=== PATIENT | female | born 1995 | race Caucasian/White ===

== ENCOUNTER 2018-10-27 10:00 | Inpatient (IN) | payer OTHER ==
[~2018-10-27] VITALS: Ht 160 cm; Wt 61.3 kg
[2018-10-27 12:32] VITALS: BP 147/94; PULSE 91; TEMP 98.7
[2018-10-27 13:51] LABS: BASO # 0.1 (0.0-0.2); BASO % 0.4 % (0.0-2.0); EOS # 0.3 (0.0-0.7); EOS % 1.9 % (0-4.0); GRAN # 9.5 (1.4-6.5); GRAN % 69.4 % (42.2-75.2); LYMPH # 2.9 (1.2-3.4); MEAN CELL VOLUME 88 fl (80.0-100.0); MEAN CORPUSCULAR HGB CONC 32 g/dl (33.0-37.0); MEAN PLATELET VOLUME 10.2 fl (7.4-10.4); MONO # 0.9 (0.1-0.6); MONO % 6.6 % (1.7-9.3); PLATELET COUNT 588 K/mm3 (130-400); RED BLOOD COUNT 3.03 M/mm3 (4.10-5.30); REDCELL DISTRIBUTION WIDTH-CV 13.2 % (11.5-14.5)
[2018-10-27 13:54] LABS: HEMATOCRIT 26.7 % (37.0-47.0); HEMOGLOBIN 8.5 g/dl (12.5-16.0); MEAN CORPUSCULAR HEMOGLOBIN 28 pg (27.0-31.0)
[2018-10-27 14:01] LABS: ALANINE AMINOTRANSFERASE 9 U/L (9-52); ALBUMIN 2.4 gm/dL (3.5-5.0); ALKALINE PHOSPHATASE 226 U/L (50-136); ANION GAP 6 mmol/L (7-16); AST,SGOT 21 U/L (15-37); BILIRUBIN,TOTAL < 0.1 mg/dL (0.0-1.0); BLOOD UREA NITROGEN 31 mg/dL (7-17); CALCIUM 8.2 mg/dL (8.4-10.2); CARBON DIOXIDE 19 mmol/L (22-30); CHLORIDE 111 mmol/L (98-107); GLUCOSE 191 mg/dL (74-106); POTASSIUM 4.6 mmol/L (3.4-5.0); SODIUM 135 mmol/L (137-145); TOTAL PROTEIN 5.9 gm/dL (6.4-8.2)
[2018-10-27] MEDS ORDERED: LANTUS100 U/ML SQ (14:08)
[2018-10-27] MEDS ORDERED: NOVOLOG 100U100 U/M1 SQ (14:09)
--- NOTE | 2018-10-27 14:51 | NUR ---
Dr Camarillo notified of consult.
--- NOTE | 2018-10-27 14:55 | NUR ---
Patient alert and oriented, answers questions appropriately. See assessment. LUE with edema and redness noted around elbow, small amount of drainage noted. LUE with limited ROM. C/o pain to LUE with movement. No other c/o at this time.
[2018-10-27] MEDS ORDERED: HYGROTON 2525 MG/TAB PO (15:29)
[2018-10-27 17:10] LABS: RETIC # 0.03 M/mm3 (0.02-0.16); RETIC % 1.2 % (0.5-3.52)
[2018-10-27 17:11] VITALS: BP 158/97; PULSE 94; TEMP 98.4
[2018-10-27 17:29] LABS: IRON,SERUM 13 ug/dL (35-150)
[2018-10-27 17:39] LABS: TOTAL IRON BINDING CAPACITY 174 ug/dL (265-497)
[2018-10-27 18:05] LABS: FERRITIN 57 ng/mL (6-137)
--- NOTE | 2018-10-27 20:35 | NUR ---
Assessment completed. Patient is A&O x 4. VSS, HR noted to tachycardiac in the low 100's. Order for oral pain medication obtained and prn [place] started. Left elbow is edematous, red, warm and oozing clear liquid from a small blister. Area has been marked with a surgical skin pen. Denies any nausea. Voiding with no difficulities, UA sent down to lab. IVF infusing per orders. Accucheck this evening was 238, insulin given per orders. Up independently in room. is at bedside. Denies any concerns or needs, call light is within reach.
[2018-10-27 20:56] LABS: PH 7 (5-8); SQUAMOUS EPITHELIAL 0-2 /hpf; URINE APPEARANCE Clear; URINE BACTERIA None Seen /hpf; URINE BILIRUBIN Negative (NEGATIVE); URINE BLOOD Negative (NEGATIVE); URINE COLOR Straw; URINE GLUCOSE 3+ (NEGATIVE); URINE KETONE Negative (NEGATIVE); URINE LEUKOCYTE ESTERASE Trace (NEGATIVE); URINE NITRATE Negative (NEGATIVE); URINE PROTEIN(semi-quant) 2+ (NEGATIVE); URINE UROBILINOGEN Negative (NEGATIVE)
[2018-10-27 21:12] LABS: COLLECTION METHOD CLEAN CATCH
[2018-10-27 21:33] VITALS: BP 102/83; PULSE 113; TEMP 98.4
[2018-10-27 21:40] LABS: URINE PROTEIN:CREAT RATIO 20.77 (0.00-0.14)
[2018-10-28 00:46] VITALS: BP 144/90; PULSE 101; TEMP 98.6
--- NOTE | 2018-10-28 02:40 | NUR ---
While rounding on patient, patient was eating a snack stating she felt her blood sugar had dropped and requested it be checked at this time. Blood sugar checked and noted to be 31, hypoglycemic protocol initiated and STEPHAN Goode notified and orders to begin D5W @ 50 ml/hr.
--- NOTE | 2018-10-28 03:00 | NUR ---
Patient's blood sugar is 40 at this time, D5W initiated per orders at 50 ml/hr and will check blood sugars every 15 minutes at this time per protocol.
--- NOTE | 2018-10-28 03:20 | NUR ---
Blood sugar of 55 at this time. D5W remains infusing @ 50 ml/hr. Patient reports that she can tell her blood sugar is going up as she is feeling better. Will recheck again in approximately 15 minutes.
--- NOTE | 2018-10-28 03:41 | NUR ---
Blood sugar at this time is 79. D5W continues to infuse at 50 ml/hr. Patient reports she can tell blood sugar continues to increase, although, she still feels it is low. Assisted patient with changing of shirt due to sweating earlier. Verbalized an understanding that blood sugar will continue to be checked frequently, per protocol will check again in 1 hour.
--- NOTE | 2018-10-28 04:57 | NUR ---
Patient has rested intermittently through the night. Left elbow pain has been controlled with prn [place]. No increase in reddness or edema to left elbow from the beginning of this shift, scant amount of drainage from the elbow. Blood sugar was low when patient reported feeling symptomatic at 0240. Blood sugar checked q15 mins until it was above 70. Blood sugar is currently at 78 with D5W infusing at 50 ml/hr. STEPHAN Goode, notified of current blood sugar level and stated to leave infusing until readings were in the 100's consecutively. Patient denies any concerns or needs at this time. has been at the bedside through the night. Call light remains within reach.
[2018-10-28 05:12] VITALS: BP 130/89; PULSE 96; TEMP 98.4
--- NOTE | 2018-10-28 06:45 | NUR ---
Reported on to Carolynn Alexander RN. Pt reports c/o pain 5 out of 10 on numerical scale, throbbing feeling in left elbow. Elbow is red and warm, slight swelling in hand with no pitting. VSS. IV in place right wrist, no redness or warmth. AGATHA Marks agreed with PO pain med but was not given as pt went back to sleep.
[2018-10-28 06:49] LABS: BASO # 0.1 (0.0-0.2); BASO % 0.5 % (0.0-2.0); EOS # 0.2 (0.0-0.7); EOS % 1.9 % (0-4.0); GRAN # 7.6 (1.4-6.5); GRAN % 75.7 % (42.2-75.2); LYMPH # 1.6 (1.2-3.4); MEAN CELL VOLUME 87 fl (80.0-100.0); MEAN CORPUSCULAR HGB CONC 32 g/dl (33.0-37.0); MEAN PLATELET VOLUME 10.3 fl (7.4-10.4); MONO # 0.5 (0.1-0.6); MONO % 5.3 % (1.7-9.3); PLATELET COUNT 523 K/mm3 (130-400); RED BLOOD COUNT 2.74 M/mm3 (4.10-5.30); REDCELL DISTRIBUTION WIDTH-CV 13.1 % (11.5-14.5)
[2018-10-28 06:53] LABS: HEMATOCRIT 23.9 % (37.0-47.0); HEMOGLOBIN 7.7 g/dl (12.5-16.0); MEAN CORPUSCULAR HEMOGLOBIN 28 pg (27.0-31.0)
[2018-10-28 07:12] LABS: PHOSPHOROUS 5.6 mg/dL (2.5-4.5)
[2018-10-28 07:40] LABS: CALCIUM 8.1 mg/dL (8.4-10.2); CREATININE, serum 3.14 (0.52-1.25); POTASSIUM 5.1 mmol/L (3.4-5.0)
[2018-10-28 07:43] VITALS: BP 145/85; PULSE 99; TEMP 98.1
--- NOTE | 2018-10-28 08:30 | NUR ---
Pt awake and alert x4, pain level unchanged and c/o itching in area "where swelling was but has gone down". Administered 1 tab [place] 5 PO. Reiterated pt teaching regarding importance of not scratching.
--- NOTE | 2018-10-28 09:28 | NUR ---
Patient sitting up in bed getting ready to order breakfast. States her left elbow itches. Education received on the importance of not scratching site. Left hand noted to be swelled. Site to left elbow red, swollen, and warm. No open areas noted. Denies needs.
--- NOTE | 2018-10-28 11:31 | NUR ---
First visit from the software intern. No needs right now.
[2018-10-28 11:33] VITALS: BP 151/83; PULSE 97; TEMP 98.1
--- NOTE | 2018-10-28 11:34 | NUR ---
VSS. Patient reports c/o 2 out of 10 on numeric pain scale, recommended elevating elbow to help with swelling. Left pt resting comfortably in chair, call light in reach. No further needs requested. Reported off to AGATHA Pradhan.
--- NOTE | 2018-10-28 14:30 | NUR ---
DARLIN student met with the patient to discuss discharge planning. The patient lives in [place] with her . The patient reports independence with ADLs and has no DME. The patient reports she doesn't have a PCP but [place]. The patient reports she gets her medication at the pharmacy in [facility] and reports no trouble affording her medication. The patient does not have DPOA-HC in EMR and reports she is not interested in completing one. The patient plans to return home with her upon discharge. No additional needs at this time.
--- NOTE | 2018-10-28 16:35 | NUR ---
Patient resting in bed with eyes closed when this nurse entered the room. Opened eyes to name. Patient denies pain. LR currently running. Denies needs.
[2018-10-28 16:46] VITALS: BP 156/97; PULSE 99; TEMP 98.4
--- NOTE | 2018-10-28 18:54 | NUR ---
Patient sitting on the side of bed eating dinner with spouse at bedside. Denies needs. Will report off to night filler nurse.
[2018-10-28 20:00] VITALS: BP 146/92; PULSE 95; TEMP 98.4
[2018-10-28 20:03] LABS: COMPLEMENT-C3 157 mg/dL (79-152); COMPLEMENT-C4 44 mg/dL (18-55)
--- NOTE | 2018-10-28 22:00 | NUR ---
Assessment completed. Patient is A&O x 4. VSS, on room air. Denies any pain at this time. Left elbow is edematous, reddened and warm to touch. Area marked around elbow with surgical marker, noted that area is not as edematous as it was yesterday. Dry area on the elbow with no blister or puss draining today. Patient reports it feels much better and is able to move her elbow around more today. Tolerating diet with no c/o nausea. Voiding with no difficulities. IVF infusing with intermittent antibiotic per orders. Up independently in room. Blood sugar this evening was 260, insulin given per orders. is at bedside. Denies any concerns or needs at this time.
[2018-10-28 22:26] LABS: C-ANCA 19 U/mL (0-99)
[2018-10-29] VITALS (17 sets, daily range): BP systolic 132–152; BP diastolic 81–93; PULSE 75–117; TEMP 97.9–98.8
--- NOTE | 2018-10-29 02:45 | NUR ---
Patient is resting with eyes closed and even respirations, does not appear to be in any distress at this time.
[2018-10-29 06:15] LABS: CHOLESTEROL RISK RATIO 5.2
--- NOTE | 2018-10-29 06:39 | NUR ---
Patient has rested well through the night. Pain has been controlled with prn [place]. Left elbow has remained unchanged for last night, no drainage noted. IVF remain infusing. Denies any concerns or needs at this time, call light remains within reach.
--- NOTE | 2018-10-29 07:07 | NUR ---
Dr Camacho here to see patient, see orders.
[2018-10-29 07:51] LABS: HIV 1/2 Antibodies Non-Reactive; HIV-1p24 Antigen Non-Reactive
[2018-10-29 07:56] LABS: BASO % 0.4 % (0.0-2.0); EOS # 0.4 (0.0-0.7); EOS % 3.4 % (0-4.0); GRAN # 6.9 (1.4-6.5); GRAN % 62.2 % (42.2-75.2); LYMPH # 2.9 (1.2-3.4); LYMPH % 26.3 % (20.0-51.0); MEAN CELL VOLUME 88 fl (80.0-100.0); MEAN CORPUSCULAR HGB CONC 32 g/dl (33.0-37.0); MEAN PLATELET VOLUME 10.4 fl (7.4-10.4); MONO # 0.8 (0.1-0.6); PLATELET COUNT 605 K/mm3 (130-400); RED BLOOD COUNT 2.13 M/mm3 (4.10-5.30); REDCELL DISTRIBUTION WIDTH-CV 13.2 % (11.5-14.5)
[2018-10-29 07:59] LABS: HEMATOCRIT 18.8 % (37.0-47.0); MEAN CORPUSCULAR HEMOGLOBIN 28 pg (27.0-31.0)
[2018-10-29 08:09] LABS: ALANINE AMINOTRANSFERASE 9 U/L (9-52); ALBUMIN 2.1 gm/dL (3.5-5.0); ALKALINE PHOSPHATASE 209 U/L (50-136); ANION GAP 3 mmol/L (7-16); AST,SGOT 21 U/L (15-37); BILIRUBIN,TOTAL < 0.1 mg/dL (0.0-1.0); BLOOD UREA NITROGEN 38 mg/dL (7-17); CARBON DIOXIDE 20 mmol/L (22-30); CHLORIDE 112 mmol/L (98-107); CREATININE, serum 3.31 (0.52-1.25); GLUCOSE 167 mg/dL (74-106); POTASSIUM 5.4 mmol/L (3.4-5.0); SODIUM 135 mmol/L (137-145); TOTAL PROTEIN 5.3 gm/dL (6.4-8.2)
--- NOTE | 2018-10-29 09:33 | NUR ---
Pt resting comfortably, reports c/o pain 4 out 10 on numerical scale. When asked what she does at home when BG is 237, she advised she would take 2 units Novolog so that is what I administered, per Ana Rosa SNIDER. Left pt resting in bed, call light in reach.
--- NOTE | 2018-10-29 11:16 | NUR ---
VSS. Patient was asleep but easy to wake, reported the nausea was down to a 2 out of 10, pain controlled and unchanged. Left her resting in bed with no further needs, call light in reach. Reported off to AGATHA Oseguera.
--- NOTE | 2018-10-29 20:46 | NUR ---
PT'S BS 408, TRIED TO CALL ASHLEE WOODSON AND NO ANSWER. GAVE 10 UNITS OF NOVOLOG TO PT FOR HIGH BS. PT A/O X4, PT EDUCATED ON DRINKING SODA. PT AMBULATING IN ROOM AND GAIT STEADY. PT UP TO USE THE BATHROOM AND THEN BACK IN BED. SITTING UP AND WATCHING TV. PT ADVISES THAT PAIN IS AT 6/10 AND IT IS STABBING, ALSO, PT RECEIVED NORCO FOR PAIN. NO FURTHER NEEDS AT THIS TIME, CALL LIGHT WITHIN REACH.
--- NOTE | 2018-10-29 20:52 | NUR ---
PT'S LEFT ARM IN DILAN WRAP AND SLING, FINGERS ARE SWOLLEN, BUT COLOR STILL NORMAL. PT CAN MOVE FINGERS ON LEFT HAND AND NO PAIN TO LEFT HAND. CALL LIGHT WITHIN REACH.
--- NOTE | 2018-10-29 20:57 | NUR ---
CALLED ASHLEE WOODSON AND ADVISED OF PT'S BS AT 408. ALSO, GAVE NOVOLOG 10 UNITS, AND WILL RECHECK BLOOD GLUCOSE AT MIDNIGHT. NO NEW ORDERS RECEIVED, ONLY TO MONITOR BLOOD GLUCOSE.
--- NOTE | 2018-10-30 01:44 | NUR ---
PT RESTING/SLEEPING IN BED WITH HOB ELEVATED TO 45 DEGREE ANGLE. PT'S AT BEDSIDE. PT'S BS 325 AND SHE RECEIVED 6 UNITS OF NOVOLOG INSULIN. PT ALSO HAD SOME PAIN IN LEFT ARM RATED AT 6/10 GAVE NORCO FOR PAIN. PT HAS NO FURTHER NEEDS AT THIS TIME. CALL LIGHT WITHIN REACH.
[2018-10-30 04:59] VITALS: BP 146/92; PULSE 95; TEMP 98.3
[2018-10-30 06:47] LABS: BASO % 0.3 % (0.0-2.0); EOS # 0.3 (0.0-0.7); EOS % 2.2 % (0-4.0); GRAN # 7.9 (1.4-6.5); GRAN % 66.7 % (42.2-75.2); LYMPH # 2.8 (1.2-3.4); LYMPH % 23.6 % (20.0-51.0); MEAN CELL VOLUME 86 fl (80.0-100.0); MEAN CORPUSCULAR HGB CONC 32 g/dl (33.0-37.0); MEAN PLATELET VOLUME 9.9 fl (7.4-10.4); MONO # 0.8 (0.1-0.6); MONO % 6.4 % (1.7-9.3); PLATELET COUNT 579 K/mm3 (130-400); RED BLOOD COUNT 3.16 M/mm3 (4.10-5.30); REDCELL DISTRIBUTION WIDTH-CV 13.4 % (11.5-14.5)
[2018-10-30 06:51] LABS: HEMATOCRIT 27.2 % (37.0-47.0); HEMOGLOBIN 8.7 g/dl (12.5-16.0); MEAN CORPUSCULAR HEMOGLOBIN 28 pg (27.0-31.0)
[2018-10-30 06:54] LABS: CALCIUM 8.3 mg/dL (8.4-10.2); CREATININE, serum 3.63 (0.52-1.25); POTASSIUM 5.2 mmol/L (3.4-5.0)
--- NOTE | 2018-10-30 07:00 | NUR ---
awake resting in bed, bedside shift report received from AGATHA Carrillo
--- NOTE | 2018-10-30 08:00 | NUR ---
in bed watching TV, full assessment completed, see interventions for further info,
[2018-10-30 08:57] VITALS: BP 151/93; PULSE 96; TEMP 98.4
--- NOTE | 2018-10-30 09:30 | NUR ---
Dr Holt and care team in to see patient
--- NOTE | 2018-10-30 10:35 | NUR ---
c/o pain to left elbow 02/04, medicated with hydrocodone 5mg 2 tabs, states had a small amount emesis that was undigested food, given crackers and diet sprite with pain pills
--- NOTE | 2018-10-30 11:03 | NUR ---
IV fluids stopped and to INT
--- NOTE | 2018-10-30 12:21 | NUR ---
in bed and appears to be sleeping, eyes closed, resp quiet and easy
--- NOTE | 2018-10-30 12:35 | NUR ---
appears to be sleeping, in bed with eyes closed, resp quiet and easy
[2018-10-30 12:41] VITALS: BP 155/106; PULSE 104; TEMP 98.5
--- NOTE | 2018-10-30 13:02 | NUR ---
resting in bed, given sliding scale insulin
--- NOTE | 2018-10-30 14:00 | NUR ---
up and about in room independently, sleeps at intervals
[2018-10-30 16:00] VITALS: BP 138/85; PULSE 95; TEMP 98
--- NOTE | 2018-10-30 17:45 | NUR ---
awake now and up and about in room, ordering supper, denies needs
--- NOTE | 2018-10-30 17:58 | NUR ---
PT AWAKE IN CHAIR. PT RATES PAIN 0/10 WITH NO COMPLAINTS AT THIS TIME. PT UP AD KAN. CALL LIGHT WITHIN REACH. REPORT GIVEN TO GHADA SNIDER.
--- NOTE | 2018-10-30 18:52 | NUR ---
bedside shift report given to AGATHA Carrillo
[2018-10-30 19:30] VITALS: BP 141/99; PULSE 107; TEMP 97.9
[2018-10-30 23:33] VITALS: BP 145/95; PULSE 102; TEMP 98.3
--- NOTE | 2018-10-31 01:20 | NUR ---
PT AWAKE IN BED SITTING UP. PT HAS C/O OF LEFT ELBOW PAIN THAT IS STABING RATED AT A 6/10. NORCO GIVEN FOR PAIN. PT ADVISES ALSO, THAT SHE DOES NOT HAVE LOWER BACK PAIN AT THIS TIME. PT WAS GIVEN A WARM PACK AND PAIN MEDIATION EARLIER IN THE SHIFT FOR HER BACK. PT WAS EDUCATED ON PROPER ACCOUNTANT BOOKKEEPER, BECAUSE PT DOES NOT SIT STRAIGHT IN BE, LOWER BACK HAS CURVE. PT REQUESTED A SANDWICH BOX WHICH WAS GIVEN TO HER. PT HAS NO FURTHER NEEDS AND CALL LIGHT WITHIN REACH.
[2018-10-31 03:48] VITALS: BP 142/90; PULSE 03; TEMP 98.7
--- NOTE | 2018-10-31 04:12 | NUR ---
PT RESTING/SLEEPING IN BED WITH AND EASILY AWAKENS. PT DENIES PAIN OR DISCOMFORT AT THIS TIME, AND NO NEEDS. CALL LIGHT WITHIN REACH.
[2018-10-31 06:59] LABS: BASO % 0.4 % (0.0-2.0); EOS # 0.3 (0.0-0.7); GRAN # 5.4 (1.4-6.5); GRAN % 59.7 % (42.2-75.2); LYMPH # 2.7 (1.2-3.4); LYMPH % 29.1 % (20.0-51.0); MEAN CELL VOLUME 86 fl (80.0-100.0); MEAN CORPUSCULAR HGB CONC 33 g/dl (33.0-37.0); MEAN PLATELET VOLUME 10.1 fl (7.4-10.4); MONO # 0.6 (0.1-0.6); MONO % 6.8 % (1.7-9.3); PLATELET COUNT 512 K/mm3 (130-400); RED BLOOD COUNT 2.82 M/mm3 (4.10-5.30); REDCELL DISTRIBUTION WIDTH-CV 13.4 % (11.5-14.5)
[2018-10-31 07:03] LABS: ALANINE AMINOTRANSFERASE 9 U/L (9-52); ALBUMIN 2.1 gm/dL (3.5-5.0); ALKALINE PHOSPHATASE 186 U/L (50-136); ANION GAP 6 mmol/L (7-16); AST,SGOT 18 U/L (15-37); BILIRUBIN,TOTAL < 0.1 mg/dL (0.0-1.0); BLOOD UREA NITROGEN 46 mg/dL (7-17); CALCIUM 8.1 mg/dL (8.4-10.2); CARBON DIOXIDE 20 mmol/L (22-30); CHLORIDE 109 mmol/L (98-107); GLUCOSE 248 mg/dL (74-106); HEMATOCRIT 24.3 % (37.0-47.0); HEMOGLOBIN 7.9 g/dl (12.5-16.0); MEAN CORPUSCULAR HEMOGLOBIN 28 pg (27.0-31.0); POTASSIUM 4.8 mmol/L (3.4-5.0); SODIUM 136 mmol/L (137-145); TOTAL PROTEIN 5.2 gm/dL (6.4-8.2)
[2018-10-31 07:22] LABS: CREATININE, serum 3.97 (0.52-1.25)
[2018-10-31 07:58] VITALS: BP 159/106; PULSE 92; TEMP 97.7
--- NOTE | 2018-10-31 08:50 | NUR ---
Patient sitting up in recliner, alert and oriented x 3. Shift assessment complete. Raghu SANCHEZ in this AM to remove PAUL and redress left elbow. DILAN wrap is CDI. Edema noted to left arm. Patient independent in room. States pain 4/10 to left elbow. Medications given per orders. Denies further needs at this time.
--- NOTE | 2018-10-31 11:52 | NUR ---
DARLIN met with the patient to review discharge plan. The patient states she is doing good and still plans to return home with her upon discharge. No additional needs at this time.
[2018-10-31] MEDS ORDERED: ADALAT CC30 MG PO (12:18)
[2018-10-31] MEDS ORDERED: FERROUS SU325 MG/TAB PO (12:18)
[2018-10-31] MEDS ORDERED: HYGROTON 2525 MG/TAB PO (12:18)
--- NOTE | 2018-10-31 12:26 | NUR ---
Notified Geovanna SANCHEZ of blood sugar of 420, administered 10units of novolog.
[2018-10-31 12:55] VITALS: BP 170/108; PULSE 101; TEMP 97.4
[2018-10-31] MEDS ORDERED: CLEOCIN HCL300 MG PO (13:07)
--- NOTE | 2018-10-31 13:14 | NUR ---
Attempted to contact Effie SANCHEZ, regarding BP
[2018-10-31 15:38] VITALS: BP 160/96; PULSE 92; TEMP 98.2
--- NOTE | 2018-10-31 16:54 | NUR ---
Discharge instructions provided to patient. Educated patient on taking medications as prescribed and checking blood sugars. Educated on signs and symptoms of infection and when to call provider. Patient educated on dressing changes to left elbow. Reminded patient to keep follow up appointments. INT to right wrist discontinued, catheter tip intact. Patient tolerated procedure well. Denies pain or further needs at this time. Patient called pcp and scheduled appointment on 11/05/18. Patient getting dressed at this time. Spouse in room. Patient will call out to nurses station when she is ready to leave.
--- NOTE | 2018-10-31 17:10 | NUR ---
Patient ambulated out with surgical staff.
== END 2018-10-31 17:10 | disposition home or self-care (01) | DRG 500 ==
LOC: SURG 10:00
PROVIDERS: Internal Medicine; Orthopaedic Surgery; Physician Assistant; ADMIT Internal Medicine
PROC: 0M9 Bursae and Ligaments, Drainage (ICD-10-PCS; 2018-10-29)
PROC: 0MB40ZZ Excision of Left Elbow Bursa and Ligament, Open Approach (ICD-10-PCS; principal; 2018-10-29 14:00)
PROC: [UNRECOGNIZED PROCEDURE] (2018-10-31)
DX: M71.122 Other infective bursitis, left elbow (principal); E10.10 Type 1 diabetes mellitus with ketoacidosis without coma; N17.9 Acute kidney failure, unspecified; L03.114 Cellulitis of left upper limb; E10.22 Type 1 diabetes mellitus with diabetic chronic kidney disease; N18.9 Chronic kidney disease, unspecified; Z79.4 Long term (current) use of insulin; D64.9 Anemia, unspecified; D47.3 Essential (hemorrhagic) thrombocythemia; E87.8 Other disorders of electrolyte and fluid balance, not elsewhere classified; E87.5 Hyperkalemia; I12.9 Hypertensive chronic kidney disease with stage 1 through stage 4 chronic kidney disease, or unspecified chronic kidney disease; B96.89 Other specified bacterial agents as the cause of diseases classified elsewhere; R00.0 Tachycardia, unspecified
CPT/HCPCS: 99222-AI; 99232-AI; 99233-AI; 99239; A4216; J0696; J1644; J1815; J2250; J2405; J2704; J3010; J3370; J7050; J7070; J7120; P9016

== ENCOUNTER 2018-12-02 10:47 | Inpatient (IN) | payer OTHER ==
[~2018-12-02] VITALS: Ht 160 cm; Wt 64.7 kg
[~2018-12-02 10:47] MED LIST: ADALAT CC30 MG PO; CLEOCIN HCL300 MG PO; FERROUS SU325 MG/TAB PO; HYGROTON 2525 MG/TAB PO; LANTUS100 U/ML SQ; NOVOLOG 100U100 U/M1 SQ
[2018-12-02 11:12] VITALS: BP 158/94; PULSE 91; TEMP 98
[2018-12-02] MEDS ORDERED: ADALAT CC60 MG PO (11:29)
[2018-12-02 13:28] LABS: BASO # 0.1 (0.0-0.2); BASO % 0.7 % (0.0-2.0); EOS # 0.3 (0.0-0.7); EOS % 4.1 % (0-4.0); GRAN # 4.4 (1.4-6.5); GRAN % 60.8 % (42.2-75.2); LYMPH % 27.4 % (20.0-51.0); MEAN CELL VOLUME 90 fl (80.0-100.0); MEAN CORPUSCULAR HGB CONC 32 g/dl (33.0-37.0); MEAN PLATELET VOLUME 10.3 fl (7.4-10.4); MONO # 0.5 (0.1-0.6); MONO % 6.7 % (1.7-9.3); PLATELET COUNT 400 K/mm3 (130-400); RED BLOOD COUNT 2.46 M/mm3 (4.10-5.30); REDCELL DISTRIBUTION WIDTH-CV 15.8 % (11.5-14.5)
[2018-12-02 13:30] LABS: HEMATOCRIT 22.1 % (37.0-47.0); MEAN CORPUSCULAR HEMOGLOBIN 28 pg (27.0-31.0)
[2018-12-02 13:40] LABS: CALCIUM 7.8 mg/dL (8.4-10.2); POTASSIUM 4.9 mmol/L (3.4-5.0)
[2018-12-02 13:41] LABS: CREATININE, serum 6.34 (0.52-1.25)
[2018-12-02 15:13] VITALS: BP 158/89; PULSE 88; TEMP 98
--- NOTE | 2018-12-02 15:45 | NUR ---
Pt resting in bed. Pt stable and alert. Pt IV remains free of complications. Pt ate lunch and has had clear yellow urine output of 800 cc s/p Lasix via IV per orders. Pt denies needs at this time. Pt has call light in reach. Pt does report that dry cough remains unchanged.
[2018-12-02 17:58] VITALS: BP 172/95; PULSE 99; TEMP 98
--- NOTE | 2018-12-02 19:21 | NUR ---
Pt resting in bed and ate 100% supper. Pt denies pain. Pt has call light in reach. Pt report given to Mera SNIDER.
[2018-12-02 21:24] VITALS: BP 157/84; PULSE 94; TEMP 98.7
--- NOTE | 2018-12-02 22:04 | NUR ---
pt resting in bed A+Ox4. reports no pain. no insulin needed. no needs at this time. call light in reach
[2018-12-03 00:13] VITALS: BP 150/80; PULSE 92; TEMP 98.4
[2018-12-03 03:09] VITALS: BP 113/66; PULSE 97; TEMP 98.1
--- NOTE | 2018-12-03 05:05 | NUR ---
pt blood sugar 50- orange juice given
--- NOTE | 2018-12-03 05:42 | NUR ---
PT HAD AN UNEVENTFUL NIGHT. PT REPORTED LIGHT HEADEDNESS, BLOOD SUGAR CHECKED AT 0445- 50. ORANGE JUICE GIVEN. BLOOD SUAGAR RECHECK WAS 57. DR SONG NOTIFIED, ORDERED D5 1/2 NS AT 20 CC/HR. NO PAIN. NO NEEDS AT THIS TIME. CALL LIGHT IN REACH
[2018-12-03 06:28] LABS: INR 0.9 (0.8-3.0); PROTHROMBIN TIME 10.2 SECONDS (9.7-12.8)
--- NOTE | 2018-12-03 06:53 | NUR ---
report given to AGATHA Morales. pt reports no needs at this time
[2018-12-03 08:10] VITALS: BP 110/70; PULSE 88; TEMP 98.3
--- NOTE | 2018-12-03 09:10 | NUR ---
BLOOD GLUCOSE RECHECK WAS 48.CALL PLACED TO AND ORDER TO INCREASE D5 1/2 NS FROM 20MLS/HR TO 30MLS/HR AND RECHECK IN 1HR.
--- NOTE | 2018-12-03 10:24 | NUR ---
RECHECK BLOOD GLUCOSE WAS 48.CALL PLACED TO -[facility].WILL CALL AGAIN.
--- NOTE | 2018-12-03 10:31 | NUR ---
Assessment complete.patient awake,a/ox3.denies pain or discomfort at this time.blood glucose at 48.patient on D5 1/2NS at 30mls/hr.reports being tired.insulin held.BLE edema noted.SCDs on.IV lasix given.will continue to monitor.call light in reach
--- NOTE | 2018-12-03 10:40 | NUR ---
call placed to regarding blood sugar of 48.order to increase D51/2NS to 50mls/Hr. states he will be rounding on patient shortly.
[2018-12-03 11:14] VITALS: BP 132/85; PULSE 87; TEMP 98.5
--- NOTE | 2018-12-03 11:43 | NUR ---
HERE ROUNDING ON PATIENT.
--- NOTE | 2018-12-03 12:11 | NUR ---
First visit from the day care center director. No needs right now.
--- NOTE | 2018-12-03 12:21 | NUR ---
NEW ORDER FOR D10 AT 35MLS/HR.
--- NOTE | 2018-12-03 13:04 | NUR ---
DARLIN met with the patient to discuss discharge plan. The patient [place] [address] with her , [place]. She reports independence with ADLs and does not have any DME. The patient receives primary care and her medications at [facility]. She reports no difficulties obtaining her meds. The patient does not have advanced directives and she was not interested in completing them at this time. The patient plans to return home with her upon discharge. No additional needs at this time.
--- NOTE | 2018-12-03 13:55 | NUR ---
RECEIVED CALL FROM ,KIDNEY BIOPSY SCHEDULED FOR TOMORROW 12/04/18.TUNNELED DIALYSIS CATHETER SCHULED FOR TOMORROW,12/04/18.ORDER TO RESUME PATIENT DIET AND STOP D10W.PATIENT NOTIFIED OF UPDATE.
[2018-12-03 16:05] VITALS: BP 152/93; PULSE 96; TEMP 98
--- NOTE | 2018-12-03 18:22 | NUR ---
PATIENT SLEEPING AT THIS TIME.BLOOD GLUCOSE STABLE.PT AWARE OF TWO PROCEDURE SCHEDULED FOR TOMORROW.NO NEEDS VOICED AT THIS TIME.WILL CONTINUE TO MONITOR.CALL LIGHT IN REACH
--- NOTE | 2018-12-03 18:56 | NUR ---
REPORT GIVEN TO AGATHA MULLEN.
[2018-12-03 19:26] VITALS: BP 174/101; PULSE 101; TEMP 98.3
--- NOTE | 2018-12-03 20:15 | NUR ---
PT RESTING IN BED WITH FAMILY AT BEDSIDE. PT REPORTS NO PAIN. FEELING TIRED. BLOOD SUGAR >300, INSULIN GIVEN. PT EDUCATED ON DIALYSIS CATH. AND KIDNEY BIOPSY. NO QUESTIONS AT THIS TIME ON PROCEDURES. SHIFT ASSESSMENT COMPLETE. IV TO LEFT FA FLUSHES WELL, NO PAIN, NO SWELLING, NO REDNESS. MONITORING I&O. 2 NO NEEDS AT THIS TIME. CALL LIGHT IN REACH.
[2018-12-04] VITALS (17 sets, daily range): BP systolic 119–165; BP diastolic 79–100; PULSE 84–115; TEMP 97.3–99.1
--- NOTE | 2018-12-04 04:59 | NUR ---
PT had na uneventful night. no pain. high blood pressure but decreased during night. pt reports feeling over all better. consents signed and on chart. information packets given on heart cath and kidney biopsy. VSS. pt NPO since midnight. no needs at this time. call light in reach
[2018-12-04 07:13] LABS: PROTHROMBIN TIME 10.9 SECONDS (9.7-12.8)
--- NOTE | 2018-12-04 07:13 | NUR ---
report given to AGATHA Carrillo. pt in bathroom at this time. wore SCD during night.
[2018-12-04 07:14] LABS: BASO # 0.1 (0.0-0.2); BASO % 0.7 % (0.0-2.0); EOS # 0.3 (0.0-0.7); EOS % 4.1 % (0-4.0); GRAN # 5.6 (1.4-6.5); GRAN % 66.8 % (42.2-75.2); HEMATOCRIT 21.9 % (37.0-47.0); LYMPH # 1.8 (1.2-3.4); LYMPH % 21.3 % (20.0-51.0); MEAN CELL VOLUME 89 fl (80.0-100.0); MEAN CORPUSCULAR HEMOGLOBIN 29 pg (27.0-31.0); MEAN CORPUSCULAR HGB CONC 32 g/dl (33.0-37.0); MONO # 0.6 (0.1-0.6); MONO % 6.6 % (1.7-9.3); PLATELET COUNT 409 K/mm3 (130-400); RED BLOOD COUNT 2.45 M/mm3 (4.10-5.30); REDCELL DISTRIBUTION WIDTH-CV 15.6 % (11.5-14.5)
[2018-12-04 07:16] LABS: PARTIAL THROMBOPLASTIN TIME 34.1 SECONDS (26.0-37.0)
[2018-12-04 07:19] LABS: ALBUMIN 2.5 gm/dL (3.5-5.0); CALCIUM 7.6 mg/dL (8.4-10.2); PHOSPHOROUS 8.1 mg/dL (2.5-4.5); POTASSIUM 5.1 mmol/L (3.4-5.0)
[2018-12-04 07:23] LABS: CREATININE, serum 6.41 (0.52-1.25)
--- NOTE | 2018-12-04 07:52 | NUR ---
ALL MEDICATIONS GIVEN VORB WITH MD. SEE MERGE FOR ALL MEDICATION ADMIN TIMES. SEE MERGE FOR ALL RASS ASSESSMENTS DURING AND POST PROCEDURE. ANTIBIOTICS GIVEN PRIOR TO PROCEDURE. REFER TO MAR.
--- NOTE | 2018-12-04 07:53 | NUR ---
Received report from off going shift. Patient was in restroom upon entering room. Patient is now currently at procedure, did administer insulin prior to leaving. Denied having any pain. Family is at bedside and going to waiting room.
--- NOTE | 2018-12-04 10:00 | NUR ---
PT BROUGHT INTO ROOM, TRANSFERS FROM BED TO TABLE. MONITORING EQUIPMENT PLACED. VSS.
--- NOTE | 2018-12-04 10:05 | NUR ---
Patient is out of room for procedure.
--- NOTE | 2018-12-04 10:05 | NUR ---
VERSED 1 MG GIVEN PER MARGOTH/ DR LEWIS.02 PLACED AT 2 L/NC
--- NOTE | 2018-12-04 10:15 | NUR ---
CALLED REPORT TO ROSENDO SNIDER. REQUESTED TO HAVE 02 KEPT ON PT AND WEANED OFF SLOWLY SHE HAS HAD VERSED AND FENTANYL. PT HAD A DIALYSIS CATH EARLIER AND THEN THE ADDITIONAL 1 MG VERSED THAT THIS NURSE GAVE PER MARGOTH.
[2018-12-04 13:18] LABS: IRON,SERUM 66 ug/dL (35-150)
[2018-12-04 13:28] LABS: TOTAL IRON BINDING CAPACITY 248 ug/dL (265-497)
[2018-12-04 13:54] LABS: FERRITIN 41 ng/mL (6-137)
--- NOTE | 2018-12-04 16:59 | NUR ---
Patient is resting in bed, family is at bedside. Did get up to use the restroom. Gait is steady and patient states she does not feel light headed. Did ask if she was experiencing any pain and she did state that her head hurts. Was offered something for pain and she stated declined. I did encourage patient to report if pain worsens so it doesn't get out of control. She agreed. Personal items and call light are within reach.
[2018-12-04 23:45] LABS: HEPATITIS B CORE AB,TOTAL Negative (()); HEPATITIS B SURFACE ANTIBODY <2.0 (()); HEPATITIS B SURFACE ANTIGEN Negative (Negative); HEPATITIS C VIRUS ANTIBODY Negative (Negative)
--- NOTE | 2018-12-05 00:12 | NUR ---
Completed assessment and medication administration; PT tolerated all cares well; PT A&Ox4, BS active x4, HRRR, pulses easily palpable, lungs CTAB; PT continues Lasix therapy post dialysis; NEW ORDER per Dr. Ken Hydralazine 25mg PO Q4H PRN for SBP >150; Reglan 5mg IV ONCE (given); Reported symptoms and BP improved with new medications; No further assessed or reported acute concerns at time of exit; PT able to return to a comfortable position in bed with personal items and call light within reach; Will continue to monitor. CDA
--- NOTE | 2018-12-05 02:31 | NUR ---
PT resting well in bed; BP decreased with dose of Hydralazine given; No further acute concerns verbalized at time of rounds; PT resting in a comfortable position in bed with personal items and call light within reach; Will continue to monitor. CDA
[2018-12-05 04:00] VITALS: BP 133/85; PULSE 86; TEMP 98.9
--- NOTE | 2018-12-05 06:40 | NUR ---
Report given to AGATHA Carrillo; No significant changes or concerns at time of shift change. CDA
--- NOTE | 2018-12-05 06:52 | NUR ---
Received report from off going shift. Patient is resting in bed with head elevated. Is awake and alert. Denies having any pain or nausea at this time. Personal items and call light is within reach.
[2018-12-05 07:14] VITALS: BP 141/85; PULSE 100; TEMP 98.3
[2018-12-05 07:19] LABS: BASO # 0.1 (0.0-0.2); BASO % 0.6 % (0.0-2.0); EOS # 0.4 (0.0-0.7); EOS % 4.3 % (0-4.0); GRAN # 5.3 (1.4-6.5); GRAN % 64.7 % (42.2-75.2); LYMPH # 1.9 (1.2-3.4); LYMPH % 22.6 % (20.0-51.0); MEAN CELL VOLUME 88 fl (80.0-100.0); MEAN CORPUSCULAR HGB CONC 32 g/dl (33.0-37.0); MONO # 0.6 (0.1-0.6); MONO % 7.4 % (1.7-9.3); PLATELET COUNT 415 K/mm3 (130-400); RED BLOOD COUNT 2.59 M/mm3 (4.10-5.30); REDCELL DISTRIBUTION WIDTH-CV 15.8 % (11.5-14.5)
[2018-12-05 07:20] LABS: HEMATOCRIT 22.8 % (37.0-47.0); HEMOGLOBIN 7.3 g/dl (12.5-16.0); MEAN CORPUSCULAR HEMOGLOBIN 28 pg (27.0-31.0)
[2018-12-05 07:44] LABS: ALBUMIN 2.8 gm/dL (3.5-5.0); CALCIUM 8.2 mg/dL (8.4-10.2); PHOSPHOROUS 6.6 mg/dL (2.5-4.5); POTASSIUM 4.5 mmol/L (3.4-5.0)
[2018-12-05 07:46] LABS: CREATININE, serum 5.18 (0.52-1.25)
--- NOTE | 2018-12-05 08:37 | NUR ---
Patient taken down for dialysis at this time. Nurse stated she will be 2 hours for treatment.
[2018-12-05 11:20] VITALS: BP 159/99; PULSE 92; TEMP 99.1
[2018-12-05 16:05] VITALS: BP 124/71; PULSE 93; TEMP 99
--- NOTE | 2018-12-05 18:42 | NUR ---
Report given to oncoming shift, no complaints, call light and personal items in reach. Family at bedside.
[2018-12-05 18:55] VITALS: BP 148/94; PULSE 94; TEMP 98.7
[2018-12-05 22:31] VITALS: BP 138/86; PULSE 93; TEMP 98.1
--- NOTE | 2018-12-05 23:16 | NUR ---
Completed assessment and medication administration; Minimal complaints of pain or nausea; PT able to tolerated all cares and medication; PT A&Ox4, BS active x4, HRRR, RT cath IJ without S/S of infection, INT to LFA; No further assessed or verbalized concerns at time of exit; PT able to return to a comfortable position in bed with personal items and call light within reach; Will continue to monitor. CDA
[2018-12-06] VITALS (17 sets, daily range): BP systolic 135–178; BP diastolic 83–100; PULSE 80–100; TEMP 97.4–99.1
--- NOTE | 2018-12-06 02:58 | NUR ---
Resting well in bed; No further needs verbalized or assessed at time of rounds; PT able to return to a comfortable position in bed with personal item and call light within reach; Will continue to monitor. CDA
[2018-12-06 06:30] LABS: BASO # 0.1 (0.0-0.2); BASO % 0.7 % (0.0-2.0); EOS # 0.4 (0.0-0.7); EOS % 4.4 % (0-4.0); GRAN # 5.3 (1.4-6.5); GRAN % 63.8 % (42.2-75.2); LYMPH # 1.9 (1.2-3.4); LYMPH % 22.9 % (20.0-51.0); MEAN CELL VOLUME 90 fl (80.0-100.0); MEAN CORPUSCULAR HGB CONC 31 g/dl (33.0-37.0); MONO # 0.6 (0.1-0.6); MONO % 7.5 % (1.7-9.3); PLATELET COUNT 354 K/mm3 (130-400); RED BLOOD COUNT 2.46 M/mm3 (4.10-5.30); REDCELL DISTRIBUTION WIDTH-CV 15.8 % (11.5-14.5)
[2018-12-06 06:33] LABS: HEMATOCRIT 22.2 % (37.0-47.0); HEMOGLOBIN 6.9 g/dl (12.5-16.0); MEAN CORPUSCULAR HEMOGLOBIN 28 pg (27.0-31.0)
[2018-12-06 06:38] LABS: ALBUMIN 2.6 gm/dL (3.5-5.0); POTASSIUM 4.5 mmol/L (3.4-5.0)
[2018-12-06 06:39] LABS: CREATININE, serum 4.29 (0.52-1.25)
--- NOTE | 2018-12-06 07:19 | NUR ---
Report given to AGATHA Morales; No significant changes or concerns at time of shift change. CDA
--- NOTE | 2018-12-06 07:52 | NUR ---
Assessment completed.patient awake,a/ox3.LSCTA.c/o discomfort to RIJ around her dialysis catheter.creatinine trending down.hgb 6.9.order to infuse 2units of PRBC.Vss.blood glucose 365 and insulin given accordingly.int to RFA-CDI. no other needs voiced at this time.call light in reach
--- NOTE | 2018-12-06 10:03 | NUR ---
patient resting in bed at this time.blood infusing started and patient tolerating well.no needs voiced at this time.call light in reach
--- NOTE | 2018-12-06 12:05 | NUR ---
first unit of PRBC completed.patient tolerated well.no concerns voiced at this time.will continue to monitor.call light in reach
--- NOTE | 2018-12-06 14:58 | NUR ---
DR BHAKTA ROUNDED ON PATIENT AND STARTED PT ON SOME NEW MEDS.STATES PATIENT WILL STAY THROUGH THE WEEKEND AND DIALYSE ON SATURDAY.SECOND UNIT OF BLOOD INFUSING AT THIS TIME.PATIENT DENIES ANY NEEDS.CALL LIGHT IN REACH
--- NOTE | 2018-12-06 15:00 | NUR ---
AIR CONDITIONING UNIT TESTER CONSULTED AND WILL SEE PATIENT TOMORROW.
--- NOTE | 2018-12-06 18:34 | NUR ---
REPORT GIVEN TO AGATHA HUMPHREYS.
--- NOTE | 2018-12-06 20:00 | NUR ---
Completed assessment and medication administration; PT able to tolerate all cares and medications; PT A&Ox4, BS active x4, HTN readings requiring PRN medications, pain 8/10 at shift change requiring PRN medications with effective results; No further assessed or verbalized complaints or concerns at time of exit; PT able to return to comfortable position in bed with personal items and call light within reach; Will continue to monitor. CDA
--- NOTE | 2018-12-07 02:54 | NUR ---
PT resting well in bed; No further assessed or verbalized at time of rounds; PT resting in comfortable position with personal items and call light within reach; Will continue to monitor. CDA
[2018-12-07 03:23] VITALS: BP 147/95; PULSE 93; TEMP 98.5
[2018-12-07 06:28] LABS: BASO # 0.1 (0.0-0.2); BASO % 0.7 % (0.0-2.0); EOS # 0.4 (0.0-0.7); GRAN # 7.2 (1.4-6.5); GRAN % 67.6 % (42.2-75.2); LYMPH % 18.8 % (20.0-51.0); MEAN CELL VOLUME 88 fl (80.0-100.0); MEAN CORPUSCULAR HGB CONC 32 g/dl (33.0-37.0); MONO # 0.8 (0.1-0.6); MONO % 7.9 % (1.7-9.3); PLATELET COUNT 345 K/mm3 (130-400); RED BLOOD COUNT 3.23 M/mm3 (4.10-5.30); REDCELL DISTRIBUTION WIDTH-CV 15.9 % (11.5-14.5)
[2018-12-07 06:34] LABS: HEMATOCRIT 28.4 % (37.0-47.0); HEMOGLOBIN 9.1 g/dl (12.5-16.0); MEAN CORPUSCULAR HEMOGLOBIN 28 pg (27.0-31.0)
[2018-12-07 06:41] LABS: ALBUMIN 2.7 gm/dL (3.5-5.0); CALCIUM 8.2 mg/dL (8.4-10.2); PHOSPHOROUS 6.3 mg/dL (2.5-4.5); POTASSIUM 4.5 mmol/L (3.4-5.0)
[2018-12-07 06:42] LABS: CREATININE, serum 5.52 (0.52-1.25)
--- NOTE | 2018-12-07 06:42 | NUR ---
Report given to AGATHA Morales; No significant changes or concerns at time of shift change. CDA
[2018-12-07 07:22] VITALS: BP 123/77; PULSE 93; TEMP 98.7
--- NOTE | 2018-12-07 09:08 | NUR ---
Assessment complete.patient awake,a/ox3.rates pain at 3/10.LSCTA.patient vitals stable.hgb trending up this morning.I&O documented.dialysis catheter to [facility].patient denies any needs at this time.will continue to monitor.call light in reach
[2018-12-07 10:52] VITALS: BP 140/84; PULSE 86; TEMP 98
[2018-12-07 15:46] VITALS: BP 161/95; PULSE 84; TEMP 98.5
[2018-12-07 19:08] VITALS: BP 178/103; PULSE 85; TEMP 97.7
--- NOTE | 2018-12-07 19:08 | NUR ---
REPORT GIVEN TO AGATHA WATERMAN.
--- NOTE | 2018-12-07 19:40 | NUR ---
Shift assessment complete. Pt resting in bed, awake, a&o, cooperatice c cares. Pt continued c/o pain rated "5/10"; PRN Percocet admin per pt req. Pt denies any other c/o. INT patent. HD cath noted to R chest, s complication. Pt tye needs. Call light in reach, will monitor.
[2018-12-07 23:15] VITALS: BP 168/93; PULSE 90; TEMP 98.3
[2018-12-08 04:14] VITALS: BP 119/70; PULSE 93; TEMP 98.2
[2018-12-08 06:00] LABS: BASO # 0.1 (0.0-0.2); BASO % 0.7 % (0.0-2.0); EOS # 0.4 (0.0-0.7); EOS % 4.2 % (0-4.0); GRAN # 6.4 (1.4-6.5); GRAN % 63.3 % (42.2-75.2); LYMPH # 2.4 (1.2-3.4); LYMPH % 23.3 % (20.0-51.0); MEAN CELL VOLUME 87 fl (80.0-100.0); MEAN CORPUSCULAR HGB CONC 33 g/dl (33.0-37.0); MEAN PLATELET VOLUME 10.4 fl (7.4-10.4); MONO # 0.8 (0.1-0.6); PLATELET COUNT 358 K/mm3 (130-400); RED BLOOD COUNT 3.33 M/mm3 (4.10-5.30); REDCELL DISTRIBUTION WIDTH-CV 15.8 % (11.5-14.5)
[2018-12-08 06:02] LABS: HEMATOCRIT 29.1 % (37.0-47.0); HEMOGLOBIN 9.7 g/dl (12.5-16.0); MEAN CORPUSCULAR HEMOGLOBIN 29 pg (27.0-31.0)
[2018-12-08 06:10] LABS: ALBUMIN 2.6 gm/dL (3.5-5.0); CALCIUM 8.1 mg/dL (8.4-10.2); POTASSIUM 4.4 mmol/L (3.4-5.0)
[2018-12-08 06:11] LABS: CREATININE, serum 6.17 (0.52-1.25)
--- NOTE | 2018-12-08 08:20 | NUR ---
Patient is resting in bed with eyes closed on right side when entering room. is at bedside. Patient is awakend by staff to go to dialysis. Medications were administered. Did offer to order breakfast and she stated she would eat when she returend. Denies pain at this time. Assisted to dialysis via wheelchair.
--- NOTE | 2018-12-08 09:36 | NUR ---
Patient is awake and alert, resting in bed. Did wish for some pericare and was assisted by 2 staff. Wound is noted to coccyx, area cleansed and dressing placed. Patient was moved up in bed and assisted with breakfast. Denies pain. Personal items and call light are within reach.
[2018-12-08 09:51] VITALS: BP 145/89; PULSE 92; TEMP 98.1
[2018-12-08] MEDS ORDERED: ADALAT CC30 MG PO (10:56)
[2018-12-08] MEDS ORDERED: PHOSLO667 MG PO (10:56)
[2018-12-08] MEDS ORDERED: LASIX 80MG TABL80 MG PO (10:57)
[2018-12-08 12:36] VITALS: BP 157/95; PULSE 92; TEMP 97.9
--- NOTE | 2018-12-08 14:50 | NUR ---
Patient discharged at this time to home. Accompanied by . Requested to walk to car, was accompained by via [facility] staff. Left via private vehicle. Belongings taken with patient.
== END 2018-12-08 14:50 | disposition home or self-care (01) | DRG 682 ==
LOC: MEDICAL 10:47
PROVIDERS: Internal Medicine Nephrology; ADMIT Internal Medicine
PROC: 05HM33Z Insertion of Infusion Device into Right Internal Jugular Vein, Percutaneous Approach (ICD-10-PCS; principal; 2018-12-04)
PROC: 5A1D70Z Performance of Urinary Filtration, Intermittent, Less than 6 Hours Per Day (ICD-10-PCS; principal; 2018-12-04)
PROC: B5131ZA Fluoroscopy of Right Jugular Veins using Low Osmolar Contrast, Guidance (ICD-10-PCS; principal; 2018-12-04)
PROC: 30233N1 Transfusion of Nonautologous Red Blood Cells into Peripheral Vein, Percutaneous Approach (ICD-10-PCS; 2018-12-06)
DX: I12.0 Hypertensive chronic kidney disease with stage 5 chronic kidney disease or end stage renal disease (principal); N18.6 End stage renal disease; N17.9 Acute kidney failure, unspecified; E11.22 Type 2 diabetes mellitus with diabetic chronic kidney disease; Z79.4 Long term (current) use of insulin; D64.9 Anemia, unspecified; R80.9 Proteinuria, unspecified
CPT/HCPCS: J0690; J0882; J1644; J1815; J1940; J2250; J2405; J2765; J2916; J3010; J7030; P9016

== ENCOUNTER 2019-02-02 13:51 | Inpatient (IN) | payer OTHER ==
[~2019-02-02] VITALS: Ht 160 cm; Wt 60.4 kg
[~2019-02-02 13:51] MED LIST changes: +ADALAT CC60 MG PO; +LASIX 80MG TABL80 MG PO; +PHOSLO667 MG PO
[2019-02-02] MEDS ORDERED: COREG 25MG25 MG/TAB PO (14:15)
[2019-02-02] MEDS ORDERED: ADALAT CC30 MG PO ×2 (14:16→14:17)
[2019-02-02] MEDS ORDERED: PHOS LO PO (14:17)
[2019-02-02] MEDS ORDERED: COSOPT 2%-0.5%10 ML OU (14:18)
[2019-02-02] MEDS ORDERED: ALPHAGAN P 15 M15 ML OU (14:19)
[2019-02-02] MEDS ORDERED: COUMADIN 5MG5 MG/TAB PO (14:19)
[2019-02-02] MEDS ORDERED: LANTUS100 U/ML SQ (14:20)
[2019-02-02] MEDS ORDERED: NOVOLOG 100U100 U/M1 SQ (14:20)
--- NOTE | 2019-02-02 14:20 | NUR ---
Pt arrived via EMS from [place] at 1405. Pt able to stand from cot and move to chair. Pt placed on monitor and assessment complete. Dialysis to be delivered as ordered by dialysis staff. Will continue to follow.
[2019-02-02 14:23] VITALS: BP 111/78; PULSE 83; TEMP 97.5
--- NOTE | 2019-02-02 14:55 | NUR ---
Dr Ken in to see pt at this time.
--- NOTE | 2019-02-02 15:12 | NUR ---
Report called to Jayda SNIDER on medical floor. Pt to admit to room 316 after dialysis is finished.
--- NOTE | 2019-02-02 15:15 | NUR ---
Report received from Angie SNIDER. Pt is in dialysis now and will not be up to the unit until around 1730.
--- NOTE | 2019-02-02 15:30 | NUR ---
Pt report given to Fabian SNIDER. Pt remains in dialysis unit around 1730.
[2019-02-02] MEDS ORDERED: REGLAN 5MG T5 MG/TAB PO (16:04)
--- NOTE | 2019-02-02 17:30 | NUR ---
Patient arrived to Medical floor room 316 at this time, she is alert/oriented, vital signs stable, denies pain or discomfort and stated she is feeling better, dialysis nurse reported that she tolerated treatment well and removed 2 kg, fsbs at 1715 was 99, patient has ordered some dinner and will eat soon, will recheck blood sugar at 1800, denies other needs at this time
[2019-02-02 17:43] VITALS: BP 151/98; PULSE 87; TEMP 98.3
--- NOTE | 2019-02-02 18:08 | NUR ---
patient eating dinner, fsbs was 104, coreg and phoslo given, family in the room, she denies needs
[2019-02-02 19:25] VITALS: BP 161/90; PULSE 87; TEMP 98.6
--- NOTE | 2019-02-02 20:00 | NUR ---
Accu check was 121. Pt up ad cari in room. Spouse and father in room.
--- NOTE | 2019-02-02 21:00 | NUR ---
Pt blood sugar 169. States she is feeling better at this time. Takes HS meds.
[2019-02-02 23:57] VITALS: BP 190/103; PULSE 87; TEMP 98
--- NOTE | 2019-02-03 02:00 | NUR ---
Blood sugar 115. Denies any needs. Has been resting. Spouse spends the night with her.
[2019-02-03 05:39] VITALS: BP 149/89; PULSE 86; TEMP 98.3
[2019-02-03 06:16] LABS: BASO # 0.1 (0.0-0.2); BASO % 0.5 % (0.0-2.0); EOS # 0.2 (0.0-0.7); EOS % 1.8 % (0-4.0); GRAN # 5.9 (1.4-6.5); GRAN % 59.8 % (42.2-75.2); LYMPH # 3.1 (1.2-3.4); LYMPH % 31.3 % (20.0-51.0); MEAN CELL VOLUME 88 fl (80.0-100.0); MEAN CORPUSCULAR HGB CONC 32 g/dl (33.0-37.0); MEAN PLATELET VOLUME 10.6 fl (7.4-10.4); MONO # 0.6 (0.1-0.6); MONO % 6.4 % (1.7-9.3); PLATELET COUNT 319 K/mm3 (130-400); RED BLOOD COUNT 3.12 M/mm3 (4.10-5.30); REDCELL DISTRIBUTION WIDTH-CV 15.2 % (11.5-14.5)
[2019-02-03 06:31] LABS: ALBUMIN 2.4 gm/dL (3.5-5.0); CALCIUM 7.6 mg/dL (8.4-10.2); CREATININE, serum 3.84 (0.52-1.25); PHOSPHOROUS 3.8 mg/dL (2.5-4.5); POTASSIUM 3.9 mmol/L (3.4-5.0)
[2019-02-03 06:37] LABS: HEMATOCRIT 27.4 % (37.0-47.0); HEMOGLOBIN 8.8 g/dl (12.5-16.0); MEAN CORPUSCULAR HEMOGLOBIN 28 pg (27.0-31.0)
--- NOTE | 2019-02-03 06:45 | NUR ---
Blood sugar from lab this AM was 62. Apple juice x2 given to pt. Report given to AGATHA Peralta.
[2019-02-03 06:49] LABS: INR 1.1 (0.8-3.0); PROTHROMBIN TIME 13.2 SECONDS (9.7-12.8)
[2019-02-03 07:58] VITALS: BP 125/77; PULSE 87; TEMP 98.2
--- NOTE | 2019-02-03 08:25 | NUR ---
Assessment completed, alert/oriented, vital signs stable/ HTN and scheduled meds given, denies pain or discomfort, blood sugars have been stable/ however she was 62 this morning but was easily arousable and denies symptoms, after a cup of juice she was 85 on recheck and is going to order breakfast, heart RRR/distal pulses are palapble, some trace-1+ edema to BLE, lungs CTA/ no resp.difficulty noted, in the room with her, denies other needs at this time
--- NOTE | 2019-02-03 10:43 | NUR ---
Initial visit; Patient thanked Mortar Carrier for looking in on her and offering God's blessings.
[2019-02-03 13:30] VITALS: BP 148/80; PULSE 82
--- NOTE | 2019-02-03 14:39 | NUR ---
DARLIN met with the patient, patient's (Douglas), and father to discuss discharge plan. The patient lives on [address] with her and father. She reports independence with ADLs. The patient's reports that he recently bought the patient a wheelchair from [employer], but that it had broken and missing pieces. He states he would be interested in getting the patient a wheelchair. DARLIN informed RNDeepika, with Dr. Ken for a PT eval. The patient's PCP is Dr. Corado in at [facility] and she also receives her medications there. She reports no difficulties obtaining her meds. The patient does not have advanced directives, but she was interested in obtaining a form for DPOA-HC. DARLIN provided. The patient plans to return home with her upon discharge. SW to continue to follow.
[2019-02-03 16:09] VITALS: BP 157/102; PULSE 80; TEMP 98
[2019-02-03 19:27] VITALS: BP 152/100; PULSE 81; TEMP 98
--- NOTE | 2019-02-03 22:00 | NUR ---
Initial shift assessment done-wants to take a shower- informed cannot take a shower with Dialysis catheter- will just wash up with warm wipes- Blood sugar tonight 432- Dr valenzuela here- put in orders for Insulin tonight and sliding scale every 4 hours tonight till she is under control- requesting sandwich and some ice water
[2019-02-04 00:33] VITALS: BP 166/84; PULSE 91; TEMP 98.6
[2019-02-04 04:48] VITALS: BP 137/80; PULSE 92; TEMP 98.6
--- NOTE | 2019-02-04 05:48 | NUR ---
Quiet night- did get coverage for high blood sugars at start of shift- now blood sugar is 104-pt states she is fine/does not want snack at this time- will order divine at 0630-- B/P was 166/83- Apresoline was given-now 137/80
[2019-02-04 07:06] LABS: BASO # 0.1 (0.0-0.2); BASO % 0.6 % (0.0-2.0); EOS # 0.3 (0.0-0.7); EOS % 2.8 % (0-4.0); GRAN # 6.7 (1.4-6.5); GRAN % 61.5 % (42.2-75.2); LYMPH # 3.2 (1.2-3.4); LYMPH % 29.1 % (20.0-51.0); MEAN CELL VOLUME 87 fl (80.0-100.0); MEAN CORPUSCULAR HGB CONC 33 g/dl (33.0-37.0); MEAN PLATELET VOLUME 10.8 fl (7.4-10.4); MONO # 0.6 (0.1-0.6); MONO % 5.6 % (1.7-9.3); PLATELET COUNT 302 K/mm3 (130-400); RED BLOOD COUNT 2.99 M/mm3 (4.10-5.30); REDCELL DISTRIBUTION WIDTH-CV 14.8 % (11.5-14.5)
[2019-02-04 07:13] LABS: HEMATOCRIT 26.1 % (37.0-47.0); HEMOGLOBIN 8.6 g/dl (12.5-16.0); MEAN CORPUSCULAR HEMOGLOBIN 29 pg (27.0-31.0)
[2019-02-04 07:17] LABS: INR 1.3 (0.8-3.0); PROTHROMBIN TIME 14.9 SECONDS (9.7-12.8)
[2019-02-04 07:22] LABS: ALBUMIN 2.5 gm/dL (3.5-5.0); CALCIUM 7.5 mg/dL (8.4-10.2); PHOSPHOROUS 4.8 mg/dL (2.5-4.5); POTASSIUM 4.8 mmol/L (3.4-5.0)
[2019-02-04 07:23] LABS: CREATININE, serum 5.33 (0.52-1.25)
--- NOTE | 2019-02-04 08:01 | NUR ---
Pt down to dialysis at this time. BS in 70's, sent down with some juice and crackers.
[2019-02-04 11:48] VITALS: BP 150/94; PULSE 85; TEMP 98.5
--- NOTE | 2019-02-04 12:03 | NUR ---
Pt back from dialysis, 3.4kg taken off. Pt tolerated without issues. Pt currently denies any pain. No N/V. Pt has not eaten today, encouraged to order lunch. Dialysis catheter in place to R chest. CDI. No needs at this time. Call light within reach.
[2019-02-04 15:42] VITALS: BP 149/91; PULSE 86; TEMP 98.4
--- NOTE | 2019-02-04 19:31 | NUR ---
Pt slept through most of the day. She denied any pain or concerns. BS varied through the day. The patient was encouraged to eat meals. POC discussed with patient and her . No needs at this time. Call light within reach. Report given to AGATHA Jimenez.
[2019-02-04 19:57] VITALS: BP 139/92; PULSE 81; TEMP 97.9
[2019-02-04 23:02] VITALS: BP 172/110; PULSE 91; TEMP 97.9
[2019-02-05 03:09] VITALS: BP 166/103; PULSE 101; TEMP 98.9
[2019-02-05 06:32] LABS: BASO # 0.1 (0.0-0.2); BASO % 0.5 % (0.0-2.0); EOS # 0.2 (0.0-0.7); EOS % 1.6 % (0-4.0); GRAN # 6.5 (1.4-6.5); LYMPH # 3.7 (1.2-3.4); LYMPH % 33.9 % (20.0-51.0); MEAN CELL VOLUME 88 fl (80.0-100.0); MEAN CORPUSCULAR HGB CONC 32 g/dl (33.0-37.0); MEAN PLATELET VOLUME 11.2 fl (7.4-10.4); MONO # 0.5 (0.1-0.6); MONO % 4.7 % (1.7-9.3); PLATELET COUNT 316 K/mm3 (130-400); RED BLOOD COUNT 2.96 M/mm3 (4.10-5.30); REDCELL DISTRIBUTION WIDTH-CV 14.8 % (11.5-14.5)
[2019-02-05 06:36] LABS: INR 1.8 (0.8-3.0); PROTHROMBIN TIME 21.4 SECONDS (9.7-12.8)
[2019-02-05 06:41] LABS: HEMATOCRIT 25.9 % (37.0-47.0); HEMOGLOBIN 8.4 g/dl (12.5-16.0); MEAN CORPUSCULAR HEMOGLOBIN 28 pg (27.0-31.0)
[2019-02-05 06:42] LABS: ALBUMIN 2.6 gm/dL (3.5-5.0); CALCIUM 7.7 mg/dL (8.4-10.2); PHOSPHOROUS 3.2 mg/dL (2.5-4.5); POTASSIUM 4.4 mmol/L (3.4-5.0)
[2019-02-05 06:43] LABS: CREATININE, serum 4.01 (0.52-1.25)
[2019-02-05 07:39] VITALS: BP 135/89; PULSE 91; TEMP 98.4
--- NOTE | 2019-02-05 08:30 | NUR ---
1919 - Pt sitting in chair, voices no c/o. End of shift report from day shift RN. Continues to be on a 1500mL FR. INT intact in L AC. Dialysis cath in place in upper right chest, used today in dialysis. Dressing clean, dry and intact. States that her will not be spending the night. Explained to her to call if she felt like her BS was low at anytime during the night. 2009 - Blood sugar was 189. No insulin required per sliding scale. 2129 - Pt states she had put her eye gtts in before I came in to given meds. Pt states she has ate supper prior to shift change. She has extra food in the room. Bags of chips and other food in room. Did some diabetic teaching to pt about rotating her injection sites. She was wanting to have injections always put in her L upper arm. Encouraged different sites which she agreed to use. 2399 - Blood sugar 504 by finger stick. Lab called to do blood draw which was 544 so 10 units Novolog given per sliding scale and Dr Ken notified. Order for Lantus 15 units SQ now and Hydralazine 25mg for BP of 172/110. Order to recheck BS with lab draw at 5AM. Pt awake at 2 and states she feels a little different. Blood sugar 391 and at 4 was 249. Will continue to monitor. 0730 Report given to AGATHA Carrillo.
--- NOTE | 2019-02-05 09:30 | NUR ---
Patient is sitting on the bench by the window, stated she just finished breakfast. Denies having any pain. Respirations are even and nonlabored. Is independent in room. Call light is within reach.
--- NOTE | 2019-02-05 12:06 | NUR ---
First visit from the creative specialist. No needs right now.
--- NOTE | 2019-02-05 14:46 | NUR ---
Patient discharged home at 1350 accompanied by and father. Did review discharge medications, declined to review information regarding diagnosis stating, "I'm sure I'll be back." Patient ambulated to vehicle having to hold onto father to see. Prior to leaving, patient was eating fast food, was encouraged to eat recommended diet.
== END 2019-02-05 13:50 | disposition home or self-care (01) | DRG 638 ==
LOC: MEDICAL 13:51 → IMCU 13:51 → MEDICAL 18:01
PROVIDERS: ADMIT Internal Medicine Nephrology
PROC: 5A1D70Z Performance of Urinary Filtration, Intermittent, Less than 6 Hours Per Day (ICD-10-PCS; principal; 2019-02-02)
DX: E11.649 Type 2 diabetes mellitus with hypoglycemia without coma (principal); I12.0 Hypertensive chronic kidney disease with stage 5 chronic kidney disease or end stage renal disease; E11.22 Type 2 diabetes mellitus with diabetic chronic kidney disease; N18.6 End stage renal disease; D63.1 Anemia in chronic kidney disease; E11.40 Type 2 diabetes mellitus with diabetic neuropathy, unspecified; Z79.4 Long term (current) use of insulin; Z79.01 Long term (current) use of anticoagulants; Z99.2 Dependence on renal dialysis; Z86.711 Personal history of pulmonary embolism
CPT/HCPCS: G0365; J0882; J1644; J1650; J1815; J7030

== ENCOUNTER 2019-04-06 02:02 | Inpatient (IN) | payer OTHER ==
[~2019-04-06] VITALS: Ht 160 cm; Wt 85.1 kg
[2019-04-06] VITALS (11 sets, daily range): BP systolic 124–187; BP diastolic 87–124; PULSE 68–81; TEMP 98–98.9; O2SAT 99
[~2019-04-06 02:02] MED LIST changes: +ALPHAGAN P 15 M15 ML OU; +COREG 25MG25 MG/TAB PO; +COSOPT 2%-0.5%10 ML OU; +COUMADIN 5MG5 MG/TAB PO; +PHOS LO PO; +REGLAN 5MG T5 MG/TAB PO
--- NOTE | 2019-04-06 06:17 | NUR ---
PT ADMITTED FROM [facility]. PT IS AXOX4. PT SHOWING SR ON TELE. BP ELEVATED IN THE 180'S WITH NITRO DRIP RUNNING AT 50MCG/MIN. BG CHECK AND 127. PT COMPLAINS OF SLIGHT HEADACHE. PT ATTATCHED TO ALL ICU MONITOR. PT ORIENTED TO ROOM AND FLOOR. NOTIFIED OF ADMISSION. PLAN FOR EARLY HD. PT UPDATED ON PLAN OF CARE.
[2019-04-06] MEDS ORDERED: LANTUS100 U/ML SQ (06:26)
[2019-04-06] MEDS ORDERED: PREDFORTE5ML IO (06:31)
[2019-04-06] MEDS ORDERED: FLOXIN 10 ML10 ML OP (06:32)
[2019-04-06] MEDS ORDERED: TIMOPTIC 0.5%-15 OU (06:33)
[2019-04-06] MEDS ORDERED: SIMBRINZA 0.2%-18 ML OP (06:35)
[2019-04-06] MEDS ORDERED: LUMIGAN 2.5 ML2.5 M1 OP (06:36)
--- NOTE | 2019-04-06 07:15 | NUR ---
PT ARRIVED FROM [facility] WITH NITRO DRIP RUNNING AT 50MCG/KG. CONTINUED HERE PER TO KEEP SBP<165/
[2019-04-06 08:42] LABS: BASO # 0.1 (0.0-0.2); BASO % 0.6 % (0.0-2.0); EOS # 0.3 (0.0-0.7); EOS % 3.9 % (0-4.0); GRAN # 4.6 (1.4-6.5); GRAN % 57.7 % (42.2-75.2); LYMPH # 2.5 (1.2-3.4); LYMPH % 31.7 % (20.0-51.0); MEAN CELL VOLUME 93 fl (80.0-100.0); MEAN CORPUSCULAR HEMOGLOBIN 29 pg (27.0-31.0); MEAN CORPUSCULAR HGB CONC 31 g/dl (33.0-37.0); MEAN PLATELET VOLUME 10.7 fl (7.4-10.4); MONO # 0.5 (0.1-0.6); PLATELET COUNT 324 K/mm3 (130-400); RED BLOOD COUNT 3.75 M/mm3 (4.10-5.30); REDCELL DISTRIBUTION WIDTH-CV 14.5 % (11.5-14.5)
[2019-04-06 08:52] LABS: ALBUMIN 4.1 gm/dL (3.5-5.0); CALCIUM 9.1 mg/dL (8.4-10.2); CREATININE, serum 3.04 (0.52-1.25); PHOSPHOROUS 2.3 mg/dL (2.5-4.5); POTASSIUM 3.9 mmol/L (3.4-5.0)
--- NOTE | 2019-04-06 10:24 | NUR ---
Pt has returned from Dialysis - reported from switchboard inspector 3.4 Kg removed from pt. Pt AAOx4 "feeling tired". Ice water provided, meal offered and refused, call light in reach. 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 Pt did experience leg cramps at end of dialysis - now resolved No concerns at this time
--- NOTE | 2019-04-06 10:24 | NUR ---
Pt arrived with Nitroglycerine gtt discontinued by automatic brine mixer operator
--- NOTE | 2019-04-06 11:13 | NUR ---
Initial visit; Patient thanked Ceo for letting her know spiritual care is available to her. She said there isn't anything she needs at this time. Ceo will continue to look in on her while she is here.
--- NOTE | 2019-04-06 11:33 | NUR ---
and visitor at bedside
--- NOTE | 2019-04-06 13:37 | NUR ---
DARLIN met with patient and father to discuss discharge planning. Patient reports she is very tried because she had dialysis this morning. Patient lives independently at home with her on [address]. Patient's PCP is Dr Corado on [address] and she obtains medications from [facility] pharmacy as well. Patient reports independance with all ADLs and does not use any DME or home services. Patient does not have any concerns returning home. DARLIN does not anticipate any discharge needs.
--- NOTE | 2019-04-06 15:29 | NUR ---
MD Jesus Manuel in room
--- NOTE | 2019-04-06 17:08 | NUR ---
Patient to room 358 by wheelchair from ICU. Oriented patient to room, call light and bed. Patient A&Ox4, denies pain and discomfort. VSS. IV CDI. Eyes, bloodshot. 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 Nurse informed patient to call nursing staff with ambulation. Patient verbalized an understanding. Patients father at the bedside. Patients will be staying overnight with patient. No further needs expressed from patient. Call light within reach
--- NOTE | 2019-04-06 18:38 | NUR ---
Patient walking in [place] with at her side. VSS. IV CDI. Denies pain and discomfort. Patient informed to limit PO fluid intake. No further needs expressed from patient. Call light within reach
--- NOTE | 2019-04-06 23:17 | NUR ---
Report received from AGATHA Way. Patient resting in bed. Assessment complete. Family at bedside. Denies pain. Pulses strong. Lungs CTA. Denies any further needs at this time. Call light within reach.
--- NOTE | 2019-04-07 01:59 | NUR ---
Patients requests we check her blood sugar. States she woke up very sweaty. Upon checking, blood sugar was 43. Juice given and will reassess in less than 1 hour.
[2019-04-07 03:39] VITALS: BP 148/94; PULSE 79; TEMP 98.8
--- NOTE | 2019-04-07 05:51 | NUR ---
Patient resting in bed. One episode of low blood sugar. Apple juice given and upon reassessment, blood sugar was increased to 82. Denies pain. at bedside. Call light within reach.
--- NOTE | 2019-04-07 06:51 | NUR ---
Report given to AGATHA Moy
[2019-04-07 07:22] LABS: BASO # 0.1 (0.0-0.2); BASO % 0.8 % (0.0-2.0); EOS # 0.2 (0.0-0.7); EOS % 2.1 % (0-4.0); GRAN # 6.2 (1.4-6.5); GRAN % 71.2 % (42.2-75.2); HEMATOCRIT 37.1 % (37.0-47.0); HEMOGLOBIN 11.6 g/dl (12.5-16.0); LYMPH # 1.7 (1.2-3.4); LYMPH % 19.9 % (20.0-51.0); MEAN CELL VOLUME 94 fl (80.0-100.0); MEAN CORPUSCULAR HEMOGLOBIN 29 pg (27.0-31.0); MEAN CORPUSCULAR HGB CONC 31 g/dl (33.0-37.0); MEAN PLATELET VOLUME 11.6 fl (7.4-10.4); MONO # 0.5 (0.1-0.6); MONO % 5.5 % (1.7-9.3); PLATELET COUNT 356 K/mm3 (130-400); RED BLOOD COUNT 3.94 M/mm3 (4.10-5.30); REDCELL DISTRIBUTION WIDTH-CV 14.7 % (11.5-14.5)
[2019-04-07 07:34] LABS: ALBUMIN 3.7 gm/dL (3.5-5.0); CALCIUM 9.1 mg/dL (8.4-10.2); CREATININE, serum 5.88 (0.52-1.25); PHOSPHOROUS 4.4 mg/dL (2.5-4.5); POTASSIUM 5.3 mmol/L (3.4-5.0)
[2019-04-07 07:36] VITALS: BP 177/105; PULSE 76; TEMP 98.3
[2019-04-07 09:00] LABS: INR 1.4 (0.8-3.0); PROTHROMBIN TIME 16.6 SECONDS (9.7-12.8)
[2019-04-07 12:00] VITALS: BP 124/74; PULSE 78; TEMP 98.6
[2019-04-07 16:31] VITALS: BP 130/89; PULSE 78; TEMP 98.5
--- NOTE | 2019-04-07 16:41 | NUR ---
REPORT GIVEN TO AGATHA PEDERSEN.
--- NOTE | 2019-04-07 19:00 | NUR ---
PT HAD UNEVENTFUL DAY. WENT TO DIALYSIS THIS AM, 1.1 KILOS PULLED OFF PER DIALYSIS NURSE. PT STATES THAT HER IS STILL DOING HER EYE DROPS FOR HER AND DENIED THE NEED FOR THIS NURSE TO DO. NO ISSUES OR CONCERNS VOICED.
[2019-04-07 19:26] VITALS: BP 147/94; PULSE 81; TEMP 98.4
--- NOTE | 2019-04-07 23:17 | NUR ---
Report received from AGATHA Moy. Patient resting in bed. Assessment complete. Alert and oriented. Pulses strong. Patient denies any pain. Father at bedside. Denies any further needs at this time. Call light within reach.
[2019-04-07 23:38] VITALS: BP 132/86; PULSE 75
[2019-04-08 03:48] VITALS: BP 156/102; PULSE 73; TEMP 98.6
--- NOTE | 2019-04-08 04:50 | NUR ---
Patient had two episodes of low blood sugars. Given apple juice and upon reassessment, blood sugars were back within normal limits.
--- NOTE | 2019-04-08 05:50 | NUR ---
Patient had uneventful night. Resting in bed. Father at bedside. Two episodes of low blood sugars but were back to normal limits after drinking apple juice. Denies having any pain. Call light within reach.
--- NOTE | 2019-04-08 07:01 | NUR ---
Report given to AGATHA Bass
[2019-04-08 07:25] LABS: ALBUMIN 3.5 gm/dL (3.5-5.0); CALCIUM 8.7 mg/dL (8.4-10.2); PHOSPHOROUS 3.6 mg/dL (2.5-4.5); POTASSIUM 5.1 mmol/L (3.4-5.0)
[2019-04-08 07:26] LABS: CREATININE, serum 5.2 (0.52-1.25)
[2019-04-08 08:35] LABS: BASO % 0.5 % (0.0-2.0); EOS % 1.7 % (0-4.0); GRAN % 73.3 % (42.2-75.2); HEMATOCRIT 35.8 % (37.0-47.0); HEMOGLOBIN 11.3 g/dl (12.5-16.0); LYMPH % 16.7 % (20.0-51.0); MEAN CELL VOLUME 93 fl (80.0-100.0); MEAN CORPUSCULAR HEMOGLOBIN 29 pg (27.0-31.0); MEAN CORPUSCULAR HGB CONC 32 g/dl (33.0-37.0); MEAN PLATELET VOLUME 11.8 fl (7.4-10.4); MONO % 7.6 % (1.7-9.3); PLATELET COUNT 335 K/mm3 (130-400); RED BLOOD COUNT 3.86 M/mm3 (4.10-5.30); REDCELL DISTRIBUTION WIDTH-CV 14.6 % (11.5-14.5)
[2019-04-08 08:36] LABS: EOS # 0.1 (0.0-0.7); GRAN # 6.1 (1.4-6.5); LYMPH # 1.4 (1.2-3.4); MONO # 0.6 (0.1-0.6)
--- NOTE | 2019-04-08 09:48 | NUR ---
Follow-up visit; Graciela is in dialysis at this time though Crtts introduced herself to Graciela's Dad, letting him know Crtts has looked in on Graciela and is glad to hear she is feeling more rested. Crtts requested that Dad let Graciela know Crtts is keeping Graciela in her prayers.
--- NOTE | 2019-04-08 11:25 | NUR ---
Pt back from Dialysis, AAOx4 "feeling good. I ordred food down there, they will be bringing it up to my room." CECILY Soto notifed for Vital Signs and AccuCheck
== END 2019-04-08 12:08 | disposition home or self-care (01) | DRG 314 ==
LOC: IMCU 02:02 → MEDICAL 05:35 → ICU 05:35 → MEDICAL 16:52
PROVIDERS: Internal Medicine Pulmonary Disease; ADMIT Internal Medicine Nephrology
PROC: 5A1D70Z Performance of Urinary Filtration, Intermittent, Less than 6 Hours Per Day (ICD-10-PCS; principal; 2019-04-06)
DX: I31.3 Pericardial effusion (noninflammatory) (principal); N18.6 End stage renal disease; J90 Pleural effusion, not elsewhere classified; I16.1 Hypertensive emergency; E87.70 Fluid overload, unspecified; R09.02 Hypoxemia; E11.40 Type 2 diabetes mellitus with diabetic neuropathy, unspecified; D63.1 Anemia in chronic kidney disease; I50.9 Heart failure, unspecified; E11.22 Type 2 diabetes mellitus with diabetic chronic kidney disease; Z91.11 Patient's noncompliance with dietary regimen; Z99.2 Dependence on renal dialysis; Z79.4 Long term (current) use of insulin; Z79.01 Long term (current) use of anticoagulants; Z86.711 Personal history of pulmonary embolism
CPT/HCPCS: J1644; J1815; J7030

== ENCOUNTER 2019-05-20 18:35 | Inpatient (IN) | payer OTHER ==
[~2019-05-20] VITALS: Ht 160 cm; Wt 51.3 kg
[~2019-05-20 18:35] MED LIST changes: +FLOXIN 10 ML10 ML OP; +LUMIGAN 2.5 ML2.5 M1 OP; +PREDFORTE5ML IO; +SIMBRINZA 0.2%-18 ML OP; +TIMOPTIC 0.5%-15 OU
[2019-05-20 19:25] LABS: BASO # 0.1 (0.0-0.2); EOS # 0.1 (0.0-0.7); EOS % 2.1 % (0-4.0); GRAN # 4.1 (1.4-6.5); GRAN % 60.3 % (42.2-75.2); HEMOGLOBIN 11.8 g/dl (12.5-16.0); LYMPH % 29.8 % (20.0-51.0); MEAN CELL VOLUME 89 fl (80.0-100.0); MEAN CORPUSCULAR HEMOGLOBIN 29 pg (27.0-31.0); MEAN CORPUSCULAR HGB CONC 33 g/dl (33.0-37.0); MEAN PLATELET VOLUME 12.2 fl (7.4-10.4); MONO # 0.4 (0.1-0.6); MONO % 6.5 % (1.7-9.3); PLATELET COUNT 269 K/mm3 (130-400); RED BLOOD COUNT 4.08 M/mm3 (4.10-5.30)
[2019-05-20 19:36] LABS: HEMATOCRIT 36.2 % (37.0-47.0); INR 0.9 (0.8-3.0); PROTHROMBIN TIME 10.9 SECONDS (9.7-12.8)
[2019-05-20 19:37] LABS: ALANINE AMINOTRANSFERASE 12 U/L (9-52); ALBUMIN 3.8 gm/dL (3.5-5.0); ALKALINE PHOSPHATASE 181 U/L (50-136); ANION GAP 8 mmol/L (7-16); AST,SGOT 20 U/L (15-37); BILIRUBIN,TOTAL 0.6 mg/dL (0.0-1.0); BLOOD UREA NITROGEN 10 mg/dL (7-17); C-REACTIVE PROTEIN 0.7 mg/dL (0.0-0.9); CALCIUM 8.9 mg/dL (8.4-10.2); CARBON DIOXIDE 33 mmol/L (22-30); CHLORIDE 95 mmol/L (98-107); CREATININE, serum 2.77 (0.52-1.25); GLUCOSE 139 mg/dL (74-106); POTASSIUM 3.6 mmol/L (3.4-5.0); SODIUM 136 mmol/L (137-145); TOTAL PROTEIN 7.3 gm/dL (6.4-8.2)
[2019-05-20 19:39] LABS: PARTIAL THROMBOPLASTIN TIME 39.7 SECONDS (26.0-37.0)
[2019-05-20 19:40] LABS: ACETONE,SERUM NEGATIVE
[2019-05-20 21:13] VITALS: BP 167/102; PULSE 81; TEMP 98.1
--- NOTE | 2019-05-20 23:00 | NUR ---
Patient arrived to medical floor at approximately 2105. Family with patient. Alert and oriented, and able to make needs known. Denies having pain and discomfort at this time. IV to left AC flushed. Site is without redness, warmth, swelling, and pain. Patient is blind. Tape put workplace relations adviser light so she can identify call button easier as requested. LS CTA. Respirations even and unlabored. Denies SOB and dyspnea. HRR. Dialysis catheter to chest. Dressing to area is CDI. Capillary refill less than 3 seconds. Non-tenting skin turgor. BSAx4. Abdomen soft and non-tender. No edema. Planning on EGD tomorrow. Notified patient that she can have clear liquids until midnight, then will be NPO. Voices no questions, needs, or concerns at this time. Call light is within reach.
[2019-05-20 23:55] VITALS: BP 151/85; PULSE 81; TEMP 98.3
[2019-05-21] VITALS (11 sets, daily range): BP systolic 123–177; BP diastolic 55–108; PULSE 79–93; TEMP 97.4–98.6
--- NOTE | 2019-05-21 05:23 | NUR ---
Patient has voiced no questions, needs, or concerns tonight. Has been resting in bed with call light within reach. Patient has not had any nausea or vomitting this shift.
--- NOTE | 2019-05-21 08:32 | NUR ---
SEE FLOW SHEET FOR DOCUMENTED BP THIS AM. PATIENT C/O HEADACHE. NURSE ASSOCIATE FOR DR. SONG ROUNDING ON PATIENT NOTIFIED. NOTIFIED OF NPO STATUS FOR POSSIBLE EGD PROCEDURE. PRN ORDER FOR 500MG PO TYLENOL RECEIVED NO ORDERS FOR BP RECEIVED AT THIS TIME. INSTRUCTED NOT TO GIVE COREG AT THIS TIME D/T POSSIBLE PROCEDURE.
--- NOTE | 2019-05-21 09:19 | NUR ---
STANDING ORDERS FOR INPATIENT UPPER GI PROCEDURE ENTERED PER ORDERS OF DR JAYASHREE CA. TENTATIVELY @ 6092 05/21. ENDOSCOPY AND ANESTHESIA DEPARTMENTS NOTIFIEED. PATIENT NOTIFIED OF PLAN. NPO SINCE MIDNIGHT EXCEPT SMALL SIP OF WATER WITH TYLENOL, SEE EMAR FOR TIME.
--- NOTE | 2019-05-21 10:01 | NUR ---
Initial visit; Patientthanked Field Appraiser for looking in on her and offering God's blessings and to keep her in Field Appraiser's prayers.
--- NOTE | 2019-05-21 10:54 | NUR ---
DARLIN met with the patient and her , Pedro to discuss a discharge plan. The patient lives on [address] with Pedro. The patient has a wheelchair and awaiting disablity to pay for a walker or cane for the patient. The patient reports her assist with ADLs as needed. The patient's PCP is Dr. Chato Corado and patient receives medications from [place] with no difficulties. The patient does not have advanced directives in the EMR and was not interested in obtaining a DPOA-HC form. The patient plans to return home upon discharge with Pedro providing transportation. There are no additional needs at this time.
--- NOTE | 2019-05-21 11:17 | NUR ---
PATIENT UP TO BATHROOM WITH STAND BY ASSIST FROM . IV FLUIDS FOR SURGICAL PROCEDURE INITIATED ORERED. 18G TO LEFT AC WNL. BLOOD GLUCOSE OBTAINED @ 262 ANESTHESIA NOTIFIED ORDER RECEIVED TO GIVED SCHEDULED SLIDING SCALE INSULIN. SEE EMAR FOR NOVOLG 6 UNITS GIVEN.
--- NOTE | 2019-05-21 18:50 | NUR ---
REPORT RECEIVED FROM AGATHA HALE; CARE OF PT ASSUMED AT THIS TIME. BEDSIDE ROUNDS COMPLETED, ALL PT NEEDS MET. CALL LIGHT WITHIN REACH.
--- NOTE | 2019-05-21 21:00 | NUR ---
PT IS ALERT, OX4 AND DENIES ANY PAIN AT THIS TIME. PT IS VOMITING UPON ENTRY TO ROOM. REPORTS THAT SHE DOES NOT EXPERIENCE NAUSEA PRIOR TO VOMITING, IT JUST COMES ON SUDDENLY. PT DENIES NEED FOR MEDICATION AT THIS TIME. BP NOTED TO BE ELEVATED TODAY AND PT HAS HAD AN OCC HEADACHE, DENIES AT THIS TIME. HR REG, LS CTA WITH NO COUGH. PT REPORTS NO VOID TODAY, STATES THIS IS HER TYPICAL; DENIES PAIN OR BURNING WITH VOIDS. PT IS BLIND, AMBULATES WITH IN ROOM INDEPENDENTLY; SPOUSE IS AT PT BEDSIDE. MEDICATIONS GIVEN AT THIS TIME AND PT DENIES ANY OTHER NEEDS.
[2019-05-22] VITALS: BP 154/100; PULSE 80; TEMP 97.5
[2019-05-22 04:42] VITALS: BP 172/100; PULSE 89; TEMP 98.2
--- NOTE | 2019-05-22 06:42 | NUR ---
PT HAS SLEPT WELL TONIGHT, NO COMPLAINTS. NO FURTHER ISSUES WITH VOMITING THROUGH THE NIGHT. SPOUSE REMAINS AT PT BEDSIDE. CALL LIGHT WITHIN REACH.
--- NOTE | 2019-05-22 07:04 | NUR ---
REPORT GIVEN TO AGATHA HALE; BEDSIDE ROUNDS COMPLETED, PT SLEEPING AT THIS TIME. CALL LIGHT WITHIN REACH.
[2019-05-22 08:31] VITALS: BP 165/107; PULSE 64; TEMP 98.5
--- NOTE | 2019-05-22 09:15 | NUR ---
SEE CHART FOR BLOOD GLUCOSE OBTAINED AT 488. SEE EMAR FOR 12 UNITS NOVOLOG ADMINISTERED PER SLIDING SCALE ORDER. JEMAL NURSE ASSOCIATE FOR DR SONG ON FLOOR NOTIFIEED. NO NEW ORDERS RECEIVED. PATIENT DOWN TO DIALYSIS. WILL RECHECK BLOOD GLUCOSE AT 1000AM. REPORT GIVEN TO DIALYSIS NURSE RASHID.
[2019-05-22 09:49] LABS: BASO # 0.1 (0.0-0.2); BASO % 0.8 % (0.0-2.0); EOS # 0.1 (0.0-0.7); EOS % 1.4 % (0-4.0); GRAN % 63.2 % (42.2-75.2); LYMPH # 2.3 (1.2-3.4); LYMPH % 29.2 % (20.0-51.0); MEAN CELL VOLUME 91 fl (80.0-100.0); MEAN CORPUSCULAR HEMOGLOBIN 29 pg (27.0-31.0); MEAN CORPUSCULAR HGB CONC 32 g/dl (33.0-37.0); MEAN PLATELET VOLUME 12.5 fl (7.4-10.4); MONO # 0.4 (0.1-0.6); MONO % 5.1 % (1.7-9.3); PLATELET COUNT 236 K/mm3 (130-400); RED BLOOD COUNT 3.43 M/mm3 (4.10-5.30)
[2019-05-22 09:52] LABS: HEMATOCRIT 31.1 % (37.0-47.0)
[2019-05-22 10:01] LABS: ALBUMIN 3.2 gm/dL (3.5-5.0); CALCIUM 8.6 mg/dL (8.4-10.2); POTASSIUM 4.4 mmol/L (3.4-5.0)
[2019-05-22 10:14] LABS: CREATININE, serum 6.82 (0.52-1.25)
--- NOTE | 2019-05-22 10:54 | NUR ---
Follow-up visit; states that Graciela is doing better and thanked Car Body Designer for checking on her/them.
[2019-05-22] MEDS ORDERED: PROTONIX 40MG T40 MG PO (11:00)
--- NOTE | 2019-05-22 11:42 | NUR ---
Administered Tuberculin PPD 5 units/0.1ml dose right forearm. Wheal obtained.
--- NOTE | 2019-05-22 19:43 | NUR ---
1710: PATIENT DC TO HOME VIA POV ACCOMPANIED BY GRANDMOTHER WATERWAY TRAFFIC CHECKER. PRINTED DC INSTRUCTIONS TO INCLUDED MEDICATIONS AND FOLLOW UP REVIEWED WITH PATIENT AND GRANDMATHER. DC PAPERS SIGNED BY GRANDMOTHER PATIENT IS BLIND. PATIENT VERBALIZES APPROVAL FOR THIS. VERBALIZES UNDERSTANDING THAT SHE HAS ALREADY TAKEN COUMADIN TODAY AND WILL RESUME COUMADIN 2.5MG TOMORROW 05/23/19. NO QUESTIONS OR CONCERNS VOICED AT DC.
== END 2019-05-22 17:10 | disposition home or self-care (01) | DRG 377 ==
LOC: COL.ER 18:35 → MEDICAL 20:01
PROVIDERS: Emergency Medicine; Internal Medicine Gastroenterology; ADMIT Internal Medicine Nephrology
PROC: 0DB68ZX Excision of Stomach, Via Natural or Artificial Opening Endoscopic, Diagnostic (ICD-10-PCS; principal; 2019-05-21 11:45)
DX: K29.71 Gastritis, unspecified, with bleeding (principal); N18.6 End stage renal disease; I12.0 Hypertensive chronic kidney disease with stage 5 chronic kidney disease or end stage renal disease; Z86.711 Personal history of pulmonary embolism; Z79.01 Long term (current) use of anticoagulants; E10.43 Type 1 diabetes mellitus with diabetic autonomic (poly)neuropathy; K31.84 Gastroparesis; Z79.4 Long term (current) use of insulin; D50.0 Iron deficiency anemia secondary to blood loss (chronic); E10.22 Type 1 diabetes mellitus with diabetic chronic kidney disease; D63.1 Anemia in chronic kidney disease; Z99.2 Dependence on renal dialysis; E10.319 Type 1 diabetes mellitus with unspecified diabetic retinopathy without macular edema; H54.3 Unqualified visual loss, both eyes
CPT/HCPCS: C9113; J1644; J1815; J2405; J2704; J7030